=== PATIENT | female | born 2000 | race Caucasian/White ===

== ENCOUNTER 2021-07-10 14:23 | Observation (INO) | payer OTHER, SELFPAY ==
[2021-07-10 14:08] VITALS: BP 154/89; PULSE 119; RESP 18; TEMP 36.6; O2SAT 99
[2021-07-10 15:01] VITALS: BP 115/65; PULSE 106
[2021-07-10 15:16] VITALS: BP 108/64; PULSE 97
--- NOTE | 2021-07-16 10:11 | PM.OBTRLD ---
OB - Triage/Final Diagnosis Visit Information Comments/Additional reasons for admission: I have assessed the risk for this patient, Caitlyn Edmond, and determined that she would benefit from observation care. Final Diagnosis (1) Decreased movement: Code(s): O36.8190 - Decreased movements, unspecified trimester, not applicable or unspecified Status: Acute
== END 2021-07-10 15:30 | disposition home or self-care (01) ==
PROVIDERS: Admitting Provider Obstetrics & Gynecology; Visit Provider Obstetrics & Gynecology
DX: O36.8120 Decreased fetal movements, second trimester, not applicable or unspecified (principal); Z3A.26 26 weeks gestation of pregnancy
CPT/HCPCS: G0378; G0379

== ENCOUNTER 2021-08-07 18:51 | Outpatient (CLI) | payer OTHER, SELFPAY ==
[2021-08-07] VITALS (10 sets, daily range): BP systolic 111–155; BP diastolic 56–80; PULSE 101–112; TEMP 36.7; BMI 48.1
[2021-08-07 19:40] LABS: Basophils Absolute Auto 0.1 K/mm3 (0.0-0.1); Basophils Percent Auto 0.3 % (0.2-1.2); Eosinophils Absolute Auto 0.2 K/mm3 (0-0.3); Eosinophils Percent Auto 1.1 % (0-4.4); Hematocrit 30.1 % (37.0-47.0); Hemoglobin 9.4 g/dL (12.0-15.0); Immature Granulocyte Absolute 0.58 K/mm3 (0.00-0.031); Immature Granulocyte Percent A 3.3 % (0-0.5); Lymphocytes Absolute Auto 2.56 K/mm3 (0.9-3.2); Lymphocytes Percent Auto 14.4 % (18.3-44.2); Mean Corpuscular HGB Conc 31.2 g/dl (32-36); Mean Corpuscular Hemoglobin 23.5 pg (26-34); Mean Corpuscular Volume 75.3 fl (80-100); Mean Platelet Volume 9.1 fl (7.4-10.4); Monocytes Absolute Auto 1.2 K/mm3 (0.1-0.6); Monocytes Percent Auto 6.9 % (2.6-8.5); Neutrophils Absolute Auto 13.1 K/mm3 (1.3-6.7); Platelet Count Result 386 k/mm3 (150-375); Red Cell Distribution Width 15.7 % (11.5-14.5); White Blood Count 17.7 K/mm3 (4.5-10.0)
[2021-08-07 19:49] LABS: Add Urine Microscopic? YES; Appearance Urine Clear (Clear); Bacteria Urine Trace /hpf; Bilirubin Urine Negative (Negative); Blood Urine Negative (Negative); Color Urine Yellow (Yellow); Glucose Urine UA Negative (Negative); Ketones Urine Negative (Negative); Leukocyte Esterase Ur Negative LEU/UL (NEGATIVE); Mucus Urine Rare /lpf; Nitrate Urine Negative (Negative); Protein Urine 1+ mg/dL (Negative); RBC Urine 0-2 /hpf (0-2); Specific Grav Ur 1.016 (1.001-1.035); Squamous Epithelial Cell Urine Occasional /hpf (Few); Urobilinogen Urine Negative mg/dL (<2.0)
[2021-08-07 19:50] LABS: Alanine Aminotransferase 13 U/L (4-35); Albumin Level 3.3 g/dL (3.5-5.1); Alkaline Phosphatase 118 U/L (38-126); Anion Gap 6 mmol/L (8-16); Aspartate Amino Transferase 21 U/L (14-36); Bilirubin,Total < 0.1 mg/dL (0.2-1.3); Blood Urea Nitrogen 7 mg/dL (7-17); Calcium 8.8 mg/dL (8.4-10.2); Carbon Dioxide 26 mmol/L (22-30); Chloride 105 mmol/L (98-107); Estimated Glomerular Filt Rate > 60; Glucose 115 mg/dL (65-110); Potassium 3.5 mmol/L (3.4-5.0); Sodium 137 mmol/L (137-145); Uric Acid 4.4 mg/dL (2.5-7.5)
[2021-08-07 20:00] LABS: Creatinine Urine 93.8 mg/dL; Total Protein Urine Random 39 mg/dL; Ur Ttl Prot Creatinine Ratio 0.42 mg/mg (0-0.20)
--- NOTE | 2021-08-07 20:13 | PC.NURSE ---
spoke with Jessica Constantino CNMW- informed of pt admission. pt came in today c/o not feeling well, BURNETTE for the past couple days, right upper quadrant pain for the past 1 1/2 weeks. no visual disturbances. pt states that BP's at home have been 140s over 90s. labs reviewed. BP reviewed. tracing reviewed. orders recevied for tylenol 1000mg for BURNETTE, 24 urine test to be completed at home, COVID test and pt to f/u in office in 2-3 days.
[2021-08-07] MEDS: ACETAMINOPHEN 500 MG TABLET 1000 MG PO (21:00)
[2021-08-08 18:19] LABS: SARS-CoV-2 RNA PCR Negative
== END 2021-08-07 21:25 | disposition home or self-care (01) ==
LOC: ANHOBOP 18:56 → ANHOBPP 18:57
PROVIDERS: Advanced Practice Midwife; Visit Provider Obstetrics & Gynecology
DX: R03.0 Elevated blood-pressure reading, without diagnosis of hypertension (principal)
CPT/HCPCS: 36415; 80053; 81001; 82570; 84156; 84550; 85025; 87086; 87088; 99199; A9270; C9803; U0003; U0005

== ENCOUNTER 2023-05-23 18:18 | Emergency (ER) | payer OTHER, SELFPAY ==
--- NOTE | ~2023-05-23 | CT_ITS ---
CT of the Abdomen and Pelvis: Indication: Abdominal pain Technique: 2.5 mm axial scans were obtained through the abdomen and pelvis following intravenous adm inistration of 100 cc of Omnipaque 350. Dose reduction technique was used on this scan by utilizing a utomated exposure control and iterative reconstruction technique. The dose-length product (DLP) was 1 410.81 mGy-cm. Findings: Scans through the lung bases are unremarkable. There is diffuse fatty infiltration of the liver. The spleen, pancreas, gallbladder, adrenals and kid neys are within normal limits. No evidence of aortic aneurysm. No lymphadenopathy. No bowel obstruction or bowel wall thickening. There is no evidence to suggest acute appendicitis. Images through the pelvis were performed. Urinary bladder unremarkable. No adnexal mass seen. No asci le. Impression: No acute abnormality. Diffuse fatty infiltration of liver. Reviewed, dictated and finalized at [facility]. Impression: No acute abnormality. Diffuse fatty infiltration of liver.
[2023-05-23 18:19] VITALS: BP 143/90; PULSE 100; RESP 16; TEMP 36.1; O2SAT 100
--- NOTE | 2023-05-23 19:34 | ED.GENADULT ---
HPI - General Adult General Chief complaint: Abdominal Pain Stated complaint: abd pain Time Seen by Provider: 05/23/23 19:13 History of Present Illness HPI narrative: Patient 23-year-old female who presents the emergency department with chief complaint of abdominal pain. Patient reports that she has been having pain for approximately 3 months reports that she has not had a period in 3 months but reports the pain has gotten worse reports its more in the suprapubic area. Patient reports that she has called her [employer] and is scheduled for an appointment in a couple of weeks but they recommended that she come to the emergency department for evaluation today. Patient denies fever denies vomiting patient denies vaginal discharge or vaginal bleeding. Related Data Allergies Allergy/AdvReac Type Severity Reaction Status Date / Time house dust Allergy Sneezing Verified 08/07/21 20:49 Review of Systems Review of Systems: A 10 system review of systems was completed on the patient and is negative except for what is stated in the HPI. Nursing and ancillary documentation was reviewed. Exam Narrative: GENERAL: Well-appearing, well-nourished, and in no acute distress. HEAD: Normocephalic, atraumatic. EYES: PERRLA and EOMI. ENT: Nares clear, no rhinorrhea or epistaxis. Mucous membranes moist. NECK: Supple. CHEST: Clear to auscultation. No respiratory distress. HEART: Regular rate and rhythm. No murmur heard. Normal peripheral pulses. ABDOMEN: Soft, diffusely tender to palpation, nondistended, normal active bowel sounds. EXTREMITIES: Normal range of motion. No edema. SKIN: Warm, dry, no rash. NEURO: No focal deficits. Alert and oriented x3. PSYCH: Normal mood and affect. Course Vital Signs Vital signs: Vital Signs Temperature 36.1 C L 05/23/23 18:19 Pulse Rate 100 05/23/23 18:19 Respiratory Rate 16 05/23/23 18:19 Blood Pressure 143/90 H 05/23/23 18:19 Pulse Oximetry 100 05/23/23 18:19 Temperature 36.1 C L 05/23/23 18:19 Pulse Rate 100 05/23/23 18:19 Respiratory Rate 16 05/23/23 18:19 Blood Pressure 143/90 H 05/23/23 18:19 Pulse Oximetry 100 05/23/23 18:19 Medical Decision Making MDM Narrative Medical decision making narrative: Differential diagnosis includes ectopic , appendicitis, diverticulitis, colitis, nonspecific abdominal pain, mesenteric adenitis. Oratory studies were obtained on the patient which showed a white count of 11.6 electrolytes showed a creatinine of 1. liver enzymes AST of 39 ALT of 27 alk phos of 69 bilirubin 0.3 lipase was 15 urinalysis showed trace ketones specific gravity 1.037 11-20 RBCs negative leukocyte esterase 0-5 white blood cells in the urine rare bacteria and a negative test. Given the patient is currently not and not showing signs of acute ovarian torsion Ultrasound was not immediately indicated for emergent study. CT scan of the abdomen pelvis was obtained which showed no acute abnormality per stat rad read. Vital Signs Vital Signs: Vital Signs Temperature 36.1 C L 05/23/23 18:19 Pulse Rate 100 05/23/23 18:19 Respiratory Rate 16 05/23/23 18:19 Blood Pressure 143/90 H 05/23/23 18:19 Pulse Oximetry 100 05/23/23 18:19 Temperature 36.1 C L 05/23/23 18:19 Pulse Rate 100 05/23/23 18:19 Respiratory Rate 16 05/23/23 18:19 Blood Pressure 143/90 H 05/23/23 18:19 Pulse Oximetry 100 05/23/23 18:19 Lab Data 05/23/23 19:43 05/23/23 19:43 Labs: Lab Results 05/23/23 05/23/23 Range/Units 19:42 19:43 WBC 11.6 H (4.5-10.0) K/mm3 RBC 5.01 (4.2-5.4) M/mm3 Hgb 12.8 D (12.0-15.0) g/dL Hct 41.3 (37.0-47.0) % MCV 82.4 (80-100) fl MCH 25.5 L (26-34) pg MCHC 31.0 L (32-36) g/dl RDW 14.7 H (11.5-14.5) % Plt Count 348 (150-375) k/mm3 MPV 10.0 (7.4-10.4) fl Immature Gran % (Auto) 0.4 (0-0.5) % Neut % (Auto) 67.4
[2023-05-23 20:03] LABS: Basophils Absolute Auto 0.1 K/mm3 (0.0-0.1); Basophils Percent Auto 0.5 % (0.2-1.2); Eosinophils Absolute Auto 0.2 K/mm3 (0-0.3); Eosinophils Percent Auto 1.9 % (0-4.4); Hematocrit 41.3 % (37.0-47.0); Hemoglobin 12.8 g/dL (12.0-15.0); Immature Granulocyte Absolute 0.05 K/mm3 (0.00-0.031); Immature Granulocyte Percent A 0.4 % (0-0.5); Lymphocytes Absolute Auto 2.73 K/mm3 (0.9-3.2); Lymphocytes Percent Auto 23.6 % (18.3-44.2); Mean Corpuscular Hemoglobin 25.5 pg (26-34); Mean Corpuscular Volume 82.4 fl (80-100); Monocytes Absolute Auto 0.7 K/mm3 (0.1-0.6); Monocytes Percent Auto 6.2 % (2.6-8.5); Neutrophils Absolute Auto 7.8 K/mm3 (1.3-6.7); Neutrophils Percent Auto 67.4 % (45.5-73.1); Platelet Count Result 348 k/mm3 (150-375); Red Blood Count 5.01 M/mm3 (4.2-5.4); Red Cell Distribution Width 14.7 % (11.5-14.5); White Blood Count 11.6 K/mm3 (4.5-10.0)
[2023-05-23 20:12] LABS: Pregnancy On Board Control Positive; Urine Pregnancy Test Negative
[2023-05-23 20:15] LABS: Add Urine Microscopic? YES; Appearance Urine Cloudy (Clear); Bacteria Urine Rare /hpf; Bilirubin Urine Negative (Negative); Blood Urine Negative (Negative); Color Urine Yellow (Yellow); Glucose Urine UA Negative (Negative); Ketones Urine Trace mg/dL (Negative); Leukocyte Esterase Ur Negative LEU/UL (Negative); Need Manual Microscopic Reviewed; Nitrate Urine Negative (Negative); Non Pathogenic Casts 0-2; Protein Urine 1+ mg/dL (Negative); Specific Grav Ur 1.037 (1.001-1.035); Squamous Epithelial Cell Urine Few /hpf (Few); WBC Urine 0-5 /hpf; pH Urine 7.5 (5.0-9.0)
[2023-05-23 20:17] LABS: Alanine Aminotransferase 27 U/L (6-35); Albumin Level 4.2 g/dL (3.5-5.1); Alkaline Phosphatase 69 U/L (38-126); Anion Gap 7 mmol/L (8-16); Aspartate Amino Transferase 39 U/L (14-36); Bilirubin,Total 0.3 mg/dL (0.2-1.3); Blood Urea Nitrogen 14 mg/dL (7-17); Calcium 8.9 mg/dL (8.4-10.2); Carbon Dioxide 32 mmol/L (22-30); Chloride 102 mmol/L (98-107); Estimated Glomerular Filt Rate > 60; Glucose 94 mg/dL (65-110); Lipase 15 U/L (23-300); Potassium 3.9 mmol/L (3.4-5.0); Sodium 141 mmol/L (137-145)
[2023-05-23 22:05] VITALS: BP 140/83; PULSE 90; RESP 20; O2SAT 95
== END 2023-05-23 22:05 | disposition home or self-care (01) ==
PROVIDERS: Emergency Provider Emergency Medicine
DX: R10.84 Generalized abdominal pain (principal)
CPT/HCPCS: 36415; 74177; 80053; 81001; 81025; 83690; 85025; 99284; Q9967

== ENCOUNTER 2023-05-29 18:00 | Outpatient (CLI) | payer OTHER, SELFPAY ==
[2023-05-29 18:28] LABS: Basophils Absolute Auto 0.1 K/mm3 (0.0-0.1); Basophils Percent Auto 0.4 % (0.2-1.2); Eosinophils Absolute Auto 0.3 K/mm3 (0-0.3); Eosinophils Percent Auto 2.2 % (0-4.4); Hematocrit 43.2 % (37.0-47.0); Hemoglobin 13.5 g/dL (12.0-15.0); Immature Granulocyte Absolute 0.04 K/mm3 (0.00-0.031); Immature Granulocyte Percent A 0.3 % (0-0.5); Lymphocytes Absolute Auto 2.86 K/mm3 (0.9-3.2); Lymphocytes Percent Auto 24.7 % (18.3-44.2); Mean Corpuscular HGB Conc 31.3 g/dl (32-36); Mean Corpuscular Hemoglobin 25.2 pg (26-34); Mean Corpuscular Volume 80.7 fl (80-100); Mean Platelet Volume 9.9 fl (7.4-10.4); Monocytes Absolute Auto 0.8 K/mm3 (0.1-0.6); Monocytes Percent Auto 6.7 % (2.6-8.5); Neutrophils Absolute Auto 7.6 K/mm3 (1.3-6.7); Neutrophils Percent Auto 65.7 % (45.5-73.1); Platelet Count Result 369 k/mm3 (150-375); Red Blood Count 5.35 M/mm3 (4.2-5.4); Red Cell Distribution Width 14.7 % (11.5-14.5); White Blood Count 11.6 K/mm3 (4.5-10.0)
[2023-05-29 18:40] LABS: Alanine Aminotransferase 28 U/L (6-35); Albumin Level 4.7 g/dL (3.5-5.1); Alkaline Phosphatase 72 U/L (38-126); Anion Gap 11 mmol/L (8-16); Aspartate Amino Transferase 33 U/L (14-36); Bilirubin,Total 0.3 mg/dL (0.2-1.3); Blood Urea Nitrogen 9 mg/dL (7-17); Calcium 9.4 mg/dL (8.4-10.2); Carbon Dioxide 25 mmol/L (22-30); Chloride 102 mmol/L (98-107); Estimated Glomerular Filt Rate > 60; Glucose 90 mg/dL (65-110); Sodium 138 mmol/L (137-145)
[2023-05-29 19:10] LABS: Hemoglobin A1C 5.2 % (<5.7)
[2023-05-29 19:12] LABS: Free T4 Free Thyroxine 0.93 ng/mL (0.78-2.19)
[2023-06-01 05:25] LABS: DHEA-Sulfate 177 mcg/dL (18-391); Thyroid Peroxidase Antibodies <1 IU/mL (<9)
[2023-06-01 05:56] LABS: Prolactin 4.5 ng/mL (***)
[2023-06-02 13:06] LABS: Testosterone Free 11.6 pg/mL (0.2-5.0)
== END 2023-05-29 18:01 | disposition home or self-care (01) ==
PROVIDERS: Visit Provider Obstetrics & Gynecology
DX: N91.2 Amenorrhea, unspecified (principal)
CPT/HCPCS: 36415; 80053; 82627; 83036; 84146; 84402; 84439; 84443; 84481; 85025; 86376

== ENCOUNTER 2025-06-23 17:52 | Outpatient (CLI) | payer OTHER, SELFPAY ==
--- OUTSIDE RECORDS SUMMARY | 2025-06-23 17:56 | XMS_ITS | Clinical Summary ---
Author Organization [place] [id number] [facility] Address [facility] [place] [address] Care Team Providers Care Field Tax Auditor Name Role Phone No, Physician Primary Care Provider [phone] Allergies No known active allergies Medications albuterol HFA (PROVENTIL HFA,VENTOLIN HFA,PROAIR HFA) 90 mcg/actuation inhaler INHALE 2 PUFFS BY MOUTH EVERY 4 HOURS 1 Active acetaminophen 500 mg capsule Take 2 capsules (1,000 mg total) by mouth every 6 (six) hours 30 tablet 1 Active cyclobenzaprin e (FLEXERIL) 10 mg tablet Take 1 tablet (10 mg total) by mouth 2 (two) times a day as needed for muscle spasms 10 tablet 1 Active docusate sodium (COLACE) 100 mg capsuleIndicat ions:constipat ion,Stool Softener Take 1 capsule (100 mg total) by mouth 2 (two) times a day 20 capsule 1 Active NIFEdipine (PROCARDIA XL/ADALAT CC) 30 mg 24 hr tablet Take 1 tablet (30 mg total) by mouth daily 30 tablet 11 1 Active polyethylene glycol (MIRALAX) 17 gram packetIndicati ons:constipati on Take 1 packet (17 g total) by mouth 2 (two) times a day as needed for constipation 14 packet 1 Active gabapentin (NEURONTIN) 300 mg capsule Take 1 capsule (300 mg total) by mouth 3 (three) times a day as needed (pain) 30 capsule 1 Active oxyCODONE (ROXICODONE) 5 mg immediate release tabletIndicati ons:Pain Take 1 tablet (5 mg total) by mouth every 4 (four) hours as needed for pain 15 tablet 1 Active acetaminophen- codeine (TYLENOL with CODEINE #3) 300-30 mg per tabletIndicati ons:Foot sprain, left, initial encounter Take 1 tablet by mouth every 6 (six) hours as needed for pain P.r.n. pain not relieved by ibuprofen alone. Take with food. Collaborating physician Sergei Gentile MD 10 tablet 4 Active ibuprofen (ADVIL,MOTRIN) 800 mg tabletIndicati ons:Foot sprain, left, initial encounter Take 1 tablet (800 mg total) by mouth 3 (three) times a day P.r.n. pain and swelling. Take with food. Collaborating physician Sergei Gentile MD 21 tablet 4 Active Active Problems Problem Noted Date Diagnosed Date Foot sprain, left, initial encounter 06/15/2024 Amenorrhea 01/24/2023 delivery delivered 08/11/2021 Overview (08/15/2021): # ID: Afebrile. No signs/symptoms of infection. #COVID-19: Preadmission testing negative # Heme: EBL 800 mL. Pre-op hgb 8.8 > hgb 8.1 POD#1. No symptoms acute blood loss anemia. # CV/Pulm: #Pre-eclampsia with severe features: s/p 24 hours of PP magnesium sulfate. Blood pressures well controlled on nifedipine XL 30mg. CBC/CMP w/ AST 62, otherwise wnl. 24-hour urine protein 431. Normotensive over the last 24 hrs. AST/ALT improved to 36/12 on POD#1. Enrolled in remote BP monitoring. #asthma: continue home albuterol PRN # GI/: Tolerating PO. Voiding spontaneously. # Pain: controlled on current regimen. # Post DVT prophylaxis: The patient has the following MAJOR risk factors BMI >/= 40 and prolonged labor OR antepartum admission >72h immediately prior to delivery and the following MINOR risk factors delivery and preeclampsia. enoxaparin 40 mg BID ordered for VTE prophylaxis. # MOC: Nexplanon to be placed prior to discharge # MOF: # COVID Vaccination Status: Not previously received: I do want the vaccine, but I don't want it right now # Disposition: Follow up task sent to [facility] scheduling pool. Desires discharge home today. Resolved Problems Problem Noted Date Diagnosed Date Resolved Date Vaginal delivery 08/13/2021 08/13/2021 Immunizations Immunization Administration Dates Next Due MMR 08/15/2021 Medical History Medical History Date Comments Asthma Depression Social History Tobacco Use Types Packs/Day Years Used Date Smoking Tobacco: Former Personal Safety Answer Date Recorded Have you ever been in or are you currently in a harmful physical or emotional relationship or is someone making you feel afraid or unsafe? 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 Gender Identity Not on file Sexual Orientation Not on file Obstetrics History Para Term AB IAB SAB Ectopic Multiple Livin g Live Births 1 1 1 0 1 1 Date Outcome GA Total Labor Labor/2nd/3rd Weight Sex Type Anes PTL Denia A1 A5 Name Clin 021 30w 6d 0h 02m 0h 02m 2.08 kg (4 lb 9.4 oz) M CS-LT ranv Epidur al Y Livin g 5 8 SACHA ,BOYA HEIDE Complications:Pre eclampsia, Failure to Progress in First Stage Delivery Location:[facility] Main C ampus ([facility] L AND D PROCEDURE) Last Filed Vital Signs Vital Sign Reading Time Taken Comments Blood Pressure 151/109 06/15/2024 8:40 PM CDT Pulse 86 06/15/2024 8:40 PM CDT Temperature 36.7 C (98.1 F) 06/15/2024 7:03 PM CDT Respiratory Rate 16 06/15/2024 8:40 PM CDT Oxygen Saturation 100% 06/15/2024 8:40 PM CDT Inhaled Oxygen Concentration - - Weight 79.4 kg (175 lb) 06/15/2024 7:03 PM CDT Height 147.3 cm (4' 10) 06/15/2024 7:03 PM CDT Body Mass Index 36.58 06/15/2024 7:03 PM CDT Plan of Treatment Health Maintenance Due Date Last Done Comments Cervical Cancer Screening 2000 Depression Screening 2000 Regular Well Visit/Exam 18-64 02/22/2018 Pneumococcal vaccine <65 (1 of 2 - PCV) 02/22/2019 DTaP/Tdap/Td Vaccine (6 - Td or Tdap) 08/04/2022 08/04/2012, 11/13/2005, 11/08/2005, Additional history exists Influenza Vaccine (#1) 2025 Hepatitis B Screening Completed 04/12/2005 , 2000, 2000, Additional history exists Varicella Vaccines Completed 08/04/2012, 04/12/2005 HPV Vaccines Completed 12/06/2016, 06/18, 08/04/2012 Hepatitis C Screening Completed 08/10/2021 Procedures Procedure Name Priority Date/Time Associated Diagnosis Comments HEPATITIS PANEL, ACUTE Timed 08/10/2021 10:21 PM CDT from Last 3 Months or Most Recently Relevant to Health Maintenance Results * Hepatitis panel, acute (08/10/2021 10:21 PM CDT) Hep A IgM Nonreactive Nonreactive [facility] Comment: Interpretive Data: If Hep A IgM Ab is reported as Equivocal, a new sample should be drawn in two weeks for testing. Current interpretive data was last revised on 20. Hep B core IgM Nonreactive Nonreactive [facility] Comment: Interpretive Data If HepB Core IgM Ab is reported as Equivocal, a new sample should be drawn in two weeks for testing. Current interpretive data was last revised on 20. Hep C Ab Nonreactive Nonreactive [facility] Comment:Antibodies to HCV no t detected. Does NOT exclude the possibility of recent exposure to HCV. HepBsAg Nonreactive Nonreactive [facility] Blood 08/10/2021 10:2 1 PM CDT 08/10/2021 10:30 PM CDT us Jaspreet Kamara MD LAB MICROBIOLOGY - GENERAL ORDERABLES Edited Result - Final [facility] Department [place] [address] from Last 3 Months or Most Recently Relevant to Health Maintenance Insurance [facility] Advance Directives For more information, please contact: [phone] * Full Code (Latest Code Status on File) Date Activated Date Inactivated Comments 08/13/2021 11:01 AM 08/15/2021 10:54 PM * Full Code Date Activated Date Inactivated Comments 08/09/2021 12:32 AM 08/13/2021 11:01 AM Care Teams Field Tax Auditor Relationship Specialty Start Date End Date No, Physician PCP - General 01/24/23
[2025-06-23 18:46] LABS: Beta HCG Quantitative < 2.39 mIU/ML
== END 2025-06-23 17:53 | disposition home or self-care (01) ==
PROVIDERS: Visit Provider Obstetrics & Gynecology
DX: N92.6 Irregular menstruation, unspecified (principal)
CPT/HCPCS: 36415; 84702